=== PATIENT | male | born 1965 | race Caucasian/White ===

== ENCOUNTER 2023-12-25 21:34 | Emergency (ER) | payer OTHER ==
[2023-12-25 21:40] VITALS: BP 120/66; PULSE 56; RESP 18; TEMP 98.1; BMI 25.7
[2023-12-25] MEDS ORDERED: IBUPROFEN 600 MG TABLET (FP) PO ONE (22:25)
[2023-12-25] MEDS ORDERED: CEPHALEXIN MONOHYDRATE 500 MG CAPSULE (UD) ONE (22:25)
[2023-12-25] MEDS: IBUPROFEN 600 MG TABLET (FP) PO ONE (22:30)
[2023-12-25] MEDS: CEPHALEXIN MONOHYDRATE 500 MG CAPSULE (UD) PO ONE (22:30)
== END 2023-12-25 23:15 | disposition home or self-care (01) ==
LOC: JER 21:34
PROC: 0H9FXZZ Drainage of Right Hand Skin, External Approach (ICD-10-PCS; principal; 2023-12-25)
DX: L03.011 Cellulitis of right finger (principal)
CPT/HCPCS: 99283-25

== ENCOUNTER 2024-02-29 23:46 | Emergency (ER) | payer OTHER ==
[2024-03-01 00:06] VITALS: RESP 18
[2024-03-01] MEDS ORDERED: guaiFENesin 200 MG/10 ML 10 ML UNIT-DOSE CUPS ONE (01:28)
[2024-03-01] MEDS: guaiFENesin 200 MG/10 ML 10 ML UNIT-DOSE CUPS PO ONE (01:36)
[2024-03-01 04:38] LABS: PH,URINE 5.5 (5.0-8.0); URINE APPEARANCE CLEAR; URINE BILIRUBIN NEGATIVE (NEGATIVE); URINE COLOR YELLOW; URINE GLUCOSE (UA) 3+ (NEGATIVE); URINE KETONE TRACE (NEGATIVE); URINE LEUK ESTERASE NEGATIVE (NEGATIVE); URINE NITRITE NEGATIVE (NEGATIVE); URINE PROTEIN NEGATIVE (NEGATIVE)
[2024-03-01 04:57] VITALS: BP 114/66; PULSE 91; TEMP 98.3
== END 2024-03-01 05:23 | disposition home or self-care (01) ==
LOC: JER 23:46
DX: R05.9 Cough, unspecified (principal); R10.9 Unspecified abdominal pain; Z20.822 Contact with and (suspected) exposure to COVID-19
CPT/HCPCS: 0241U-QW; 71045-TC-FY; 81003; 87086; 99284-25

== ENCOUNTER 2024-12-06 15:40 | Emergency (ER) | payer OTHER ==
[2024-12-06 15:47] VITALS: BP 164/70; PULSE 83; RESP 16; TEMP 98.3; BMI 25.8
[2024-12-06] MEDS ORDERED: DIPHTH,PERTUSS(ACELL),TET 0.5 ML DISP.SYRIN IM ONE (16:41)
[2024-12-06] MEDS: DIPHTH,PERTUSS(ACELL),TET 0.5 ML DISP.SYRIN IM ONE (16:44)
== END 2024-12-06 16:45 | disposition home or self-care (01) ==
LOC: JERFT 15:40
PROC: 0XQKXZZ Repair Left Hand, External Approach (ICD-10-PCS; principal; 2024-12-06)
PROC: 3E0234Z Introduction of Serum, Toxoid and Vaccine into Muscle, Percutaneous Approach (ICD-10-PCS; 2024-12-06)
DX: S61.211A Laceration without foreign body of left index finger without damage to nail, initial encounter (principal); Z23 Encounter for immunization; W26.8XXA Contact with other sharp object(s), not elsewhere classified, initial encounter
CPT/HCPCS: 90715; 99284-25